=== PATIENT | female | born 1995 | race Caucasian/White ===

== ENCOUNTER 2022-07-05 15:29 | Emergency (ER) | payer MEDICAID, SELFPAY ==
[2022-07-05 15:30] VITALS: BP 100/59; PULSE 100; RESP 19; TEMP 36.1; O2SAT 100
[2022-07-05 15:44] VITALS: BMI 29.1
--- NOTE | 2022-07-05 15:53 | RAD_ITS ---
STUDY: X-RAY - RIGHT CLAVICLE REASON FOR EXAM: Female, 27 years old. Fell down 13 steps. Right clavicular pain. TECHNIQUE: 2 view(s) of the clavicle. COMPARISON: None. FINDINGS: Displaced comminuted fracture of the mid clavicle. Normal acromioclavicular articulation. Normal visualized sternoclavicular articulation. Normal visualized pulmonary apex. RAD/Clavicle IMPRESSION: Displaced comminuted fracture of the mid clavicle Electronically Signed: Ki Garcia DO at 17:14 EST ,
--- NOTE | 2022-07-05 16:04 | EDS_ITS ---
HPI History of Present Illness Chief Complaint: Fall Narrative Narrative: Patient is a 27-year-old female with no significant medical history presents to the emergency department after a mechanical fall down 13 steps, patient did have a positive LOC. Patient states that she did have loss of bowel and bladder. Patient states that she might have been out of her close to 5 minutes she is unsure. She did get herself up, call her friend and her friend brought her here. Patient is mostly complaining of her right collarbone, right shoulder. She also has pain to her neck and head. She is alert and orient x4. She denies any recent drug use. She alcohol use PFSH PFS Medical History no medical history Home Medications cyclobenzaprine 10 mg tablet 10 mg PO TID PRN Muscle Spasm #15 TABLETS 07/05/22 [Rx Last Taken Unknown] ibuprofen 800 mg tablet 800 mg PO Q8H #20 tabs 07/05/22 [Rx Last Taken Unknown] oxycodone-acetaminophen 5 mg-325 mg tablet (Percocet) 1 tab PO Q8H PRN pain 3 days #12 tabs 07/05/22 [Rx Last Taken Unknown] Allergy/AdvReac Type Severity Reaction Status Date / Time No Known Allergies Allergy Verified 06/28/13 12:27 Social History Smoking Status: Current every day smoker tobacco type: cigarettes ROS ROS ED ROS Narrative Constitutional: Negative for fever, chills, weight loss, weakness Eyes: Negative for vision loss, vision change, double vision ENT: Negative for any sore throat, ear pain, congestion Cardiovascular: Negative for any chest pain, tightness, palpitations Respiratory: Negative for any cough, sputum production, hemoptysis, dyspnea, dyspnea on exertion, orthopnea Gastrointestinal: Negative for any abdominal pain, nausea, vomiting, diarrhea, constipation, blood in stool, blood in vomit : Negative for any urinary frequency, dysuria, retention, blood in urine Muscle skeletal: Negative for any muscle joint pain, stiffness, myalgias, arthralgias,back pain. Positive for neck pain, right shoulder, right clavicle pain Neurological: Negative for any syncope, numbness or tingling, dizziness. Positive for headache Skin: Negative for any rashes, lumps, itching, abrasions, lacerations Psychiatric: Negative for any depression, anxiety, stress, suicidal ideation, homicidal ideation Hematologic: Negative for any easy bruising, excessive bruising, easy bleeding Allergies: Negative for any eczema, hives, rash EXAM Physical Exam Narrative Exam Narrative: Vital signs reviewed. Patient is alert and orient x4. She does appear to be in distress secondary to pain to her right collarbone, right shoulder. HEET: Head normocephalic atraumatic, TMs clear bilaterally. Posterior pharynx is clear, moist mucous membranes. Nares clear bilaterally. Pupils are equal round reactive to light. Negative for any hemotympanum, septal hematoma. Neck: Supple with no lymphadenopathy or tenderness. No signs of meningismus, negative jolt sign. Cardiac: Regular rate and rhythm no murmurs gallops or rubs, equal peripheral pulses bilaterally. Respiratory: Lungs clear to auscultation bilaterally. Patient did have some tenderness to the right ribs Abdomen: Soft, nontender, nondistended. No abdominal bruit or pulsatile masses. No hepatosplenomegaly Extremities: No peripheral edema, no signs of gross trauma or deformity. Active full range of motion of all extremities. Neuro: Cranial nerves II through XII intact, no focal neurological deficits. Skin: Clean dry and intact with no rash, purpura, petechiae, vesicles or pustules. Backs/flank: No CVA tenderness, no midline spinal tenderness, no deformity. No signs of ecchymosis. Psych: Normal mood and affect. No SI, HI or acute psychosis. Const Vital Signs: 07/05/22 15:30 07/05/22 15:45 Temperature 97 F L Temperature Source Temporal Pulse Rate 100 Respiratory Rate 19 H Respiratory Effort Normal Non-Labored Blood Pressure 100/59 L Blood Pressure Mean 72 Pulse Ox 100 Oxygen Delivery Method Room Air [facility] Lab Data Labs: Laboratory Results - last 24 hr 07/05/22 07/05/22 07/05/22 16:02 16:02 16:02 WBC 14.1 H RBC 4.69 Hgb 14.6 Hct 43.5 MCV 92.8 MCH 31.1 MCHC 33.6 RDW Std Deviation 39.9 RDW Coeff of Vik 11.8 Plt Count 319 MPV 8.7 Immature Gran % (Auto) 0.700 Neut % (Auto) 78.6 H Lymph % (Auto) 14.6 L [place] % (Auto) 5.4 Eos % (Auto) 0.3 Baso % (Auto) 0.4 Absolute Neuts (auto) 11.1 H Absolute Lymphs (auto) 2.06 Nucleated RBC % 0.1 Sodium 138 Potassium 4.1 Chloride 106 Carbon Dioxide 27.0 Anion Gap 5 BUN 13 Creatinine 0.96 Estim Creat Clear Calc 77.81 Est GFR (MDRD) Af Amer 88 Est GFR (MDRD) Non-Af 73 BUN/Creatinine Ratio 13.5 Glucose 99 Calcium 8.7 Serum , Qual NEGATIVE Radiography Diagnostic Testing: Clinical Impression(s) from Imaging Studies Clavicle X-Ray 07/05/22 15:53 IMPRESSION: Displaced comminuted fracture of the mid clavicle Electronically Signed: Ki Garcia DO at 17:14 EST Reading Location ID and State: [facility] [place] [facility] [employer] Tel [phone], Service support , Brain CT 07/05/22 16:42 IMPRESSION: Normal unenhanced CT scan of the brain. [employer] was utilized to assist in identifying pertinent positive findings in this case. Electronically Signed: Ki Garcia DO at 17:00 EST Reading Location ID and State: [place] Tel [phone], Service support , Cervical Spine CT 07/05/22 16:42 IMPRESSION: No acute fracture or subluxation. Note: MRI is more sensitive than CT in detecting cord injury, ligamentous injury and epidural hematoma. If there is continued clinical concern for any of these entities, MRI should be considered. [employer] was utilized to assist in identifying pertinent positive findings in this case. Electronically Signed: Ki Garcia DO at 17:13 EST Reading Location ID and State: [facility] [place] / [employer] Tel [phone], Service support , Chest CT 07/05/22 16:42 IMPRESSION: 1. Right clavicular fracture. 2. Otherwise normal CT of the chest. Electronically Signed: Ki Garcia DO at 17:16 EST Reading Location ID and State: [place] Tel [phone], Service support , Shoulder X-Ray 07/05/22 16:57 IMPRESSION: Mid clavicular fracture. Electronically Signed: Ki Garcia DO at 17:14 EST Reading Location ID and State: [address] [place] [address] Tel [phone], Service support , EKG Sinus tachycardia: Attestation: I personally reviewed and interpreted this EKG as follows: Comments: EKG inter by ER physician sinus tachycardia, rate 102 bpm, MS 126 ms, QRS duration 70 more milliseconds no acute ST elevation, no acute infarct noted. Treatment and Re-Evaluation :: All radiologic examinations were read, reviewed by the emergency department attending. From these reads, a plan of care will be put in place. Patient appears well, patient appears nontoxic, vital signs are stable. Patient arrives in moderate discomfort secondary to right shoulder pain. Patient presents the emergency department after mechanical fall down 13 steps, positive LOC. Patient received EKG which was unremarkable. There is no evidence suspect any syncope then fall. Patient's laboratory values showed a CBC with a leukocytosis with a white blood count of 14.1, this is likely reactive. [facility], patient does not Agnant. Patient did receive a CT scan of the brain a CT scan cervical spine, this was grossly unremarkable. Patient received a CT scan of chest, looking for any rib fractures, thoracic spinal fractures, this was negative. Patient did receive a shoulder and clavicular x-rays, this did show a displaced comminuted fracture of the mid clavicular. Patient will be placed in a sling. The patient did receive IV morphine, IV Zofran, IV fluids. Patient on reevaluation received a second dose of IV morphine. Patient will be able to be discharged. Patient will be given Percocet, Flexeril, ibuprofen for home. She is instructed to follow-up with orthopedics for concern of surgery of the right clavicle. I was able speak with the patient's mother who verbally understands the importance of follow-up and will stay with the patient tonight. Patient is happy with the plan of care and is stable for discharge. Discharge Plan Triage Chief Complaint: Fall ED Midlevel Provider: Jesu Blank ED Provider: Jesu Arreaga Dx/Rx/DC Orders Clinical Impression: Fall, Head injury due to trauma, Clavicle fracture, Contusion of rib, Cervical muscle strain Instructions: After a Concussion, ED Fracture, Clavicle, ED Bruise, Rib Prescriptions: New oxycodone-acetaminophen [Percocet] 5-325 mg tablet 1 tab PO Q8H PRN (Reason: pain) 3 Days Qty: 12 0RF ibuprofen 800 mg tablet 800 mg PO Q8H Qty: 20 0RF cyclobenzaprine 10 mg tablet 10 mg PO TID PRN (Reason: Muscle Spasm) Qty: 15 0RF Stand Alone Forms: ED Work / School Excuse Primary Care Provider: Care Physician,No Primary Referrals: Care Physician,No Primary [Primary Care Provider] - Girish Lazo DO [Med Staff - Active Staff] - Activity Restrictions/Additional Instructions: You must wear the sling at all times. Ice, use the pain medicine, anti- inflammatories, muscle relaxers as needed. You need to follow-up with orthopedics secondary to needing possible surgery
[2022-07-05] MEDS: 0.9% Normal Saline 1,000 ML 1000 ML IV (16:09)
[2022-07-05] MEDS: Ondansetron 4 MG/2 ML Vial IV (16:10)
[2022-07-05] MEDS: Morphine 4 MG/ML Syringe IV ×2 (16:10→17:47)
[2022-07-05 16:14] LABS: Absolute Lymphocyte Count 2.06 X10^3/uL (0.83-4.51); Absolute Neutrophil Count 11.1 X10^3/uL (2.0-7.7); Basophil# 0.05 X10^3/uL; Basophil% 0.4 % (0-1); Eosinophil# 0.04 X10^3/uL; Eosinophils% 0.3 % (0-5); Hematocrit 43.5 % (37-47); Hemoglobin 14.6 g/dL (12.0-15.0); Lymphocyte # 2.06 X10^3/ul (0.83-4.51); Lymphocyte % 14.6 % (19-41); Mean Corp Hgb Conc 33.6 g/dL (32-36); Mean Corpuscular Hgb 31.1 pg (27.0-32.0); Mean Corpuscular Volume 92.8 fL (81-99); Mean Platelet Vol. 8.7 fl (6.2-12.0); Monocyte# 0.76 X10^3/uL; Monocyte% 5.4 % (0-10); NRBC Flagged by Analyzer 0.1 % (0-5); Neutrophil # 11.06 X10^3/uL (2.7-7.7); Neutrophil % 78.6 % (47-70); Platelet Count 319 K/mm3 (150-450); RBC Distribution Width CV 11.8 % (11.6-14.6); RBC Distribution Width SD 39.9 fl (35.1-43.9); Red Blood Count 4.69 M/mm3 (4.2-5.4); White Blood Count 14.1 K/mm3 (4.4-11.0)
[2022-07-05 16:20] LABS: Glucose 99 mg/dL (74-106)
[2022-07-05 16:21] LABS: Anion Gap 5 (5-15); BUN 13 mg/dL (7-18); BUN/Creat Ratio 13.5 RATIO (10-20); Calcium,Total 8.7 mg/dL (8.5-10.1); Chloride 106 mmol/L (98-107); Creatinine, Serum 0.96 mg/dL (0.55-1.02); EST Glomerular Filtration Rate 73 mL/min (>60); Est Glom Filt Rate - Afr Amer 88 mL/min (>60); Estimated Creatinine Clearance 77.81 ml/min; Potassium 4.1 mmol/L (3.5-5.1); Sodium Level 138 mmol/L (136-145)
[2022-07-05 16:39] LABS: Internal QC Validated? YES +Cl - CLEAR BKGD; Pregnancy, Serum, hCG Quali. NEGATIVE Negative
--- NOTE | 2022-07-05 16:42 | CT_ITS ---
STUDY: CT BRAIN WITHOUT CONTRAST REASON FOR EXAM: Female, 27 years old. Fall down 13 steps. Loss of consciousness. RADIATION DOSAGE (If Supplied By Facility): CTDIvol = ( 44.99 ) mGy, DLP = ( 812.98 ) mGycm TECHNIQUE: Transaxial CT imaging of the brain was performed without administration of intravenous contrast material. Individualized dose optimization techniques were used for this CT. COMPARISON: No relevant priors. FINDINGS: Normal soft tissue structures. Normal calvarium. Normal size ventricles and extra-axial spaces for the patient''s age. Normal white matter tracts of the cerebral hemispheres. Normal basal ganglia and thalami. Normal brainstem. Normal cerebellum. There is no intracranial hemorrhage. There are no findings of an acute ischemic infarction. Normal visualized paranasal sinuses. CT/Brain/Head without Contrast IMPRESSION: Normal unenhanced CT scan of the brain. [employer] was utilized to assist in identifying pertinent positive findings in this case. Electronically Signed: Ki Garcia DO at 17:00 EST ,
--- NOTE | 2022-07-05 16:42 | CT_ITS ---
STUDY: CT CERVICAL SPINE WITHOUT CONTRAST REASON FOR EXAM: Female, 27 years old. Fell down 13 steps with loss of consciousness. RADIATION DOSAGE (If Supplied By Facility): CTDIvol = ( 24.01 ) mGy, DLP = ( 496.21 ) mGycm TECHNIQUE: High resolution transaxial imaging was performed without contrast material. Sagittal and coronal images were reconstructed. Individualized dose optimization techniques were used for this CT. COMPARISON: None FINDINGS: Normal craniovertebral junction. Normal anterior atlantoaxial articulation. Normal odontoid process. There is straightening of the normal cervical lordosis. Normal vertebral bodies and posterior osseous elements. C2-3: Normal endplates. Normal disc height and morphology. Normal central canal and intervertebral neuroforamina. C3-4: Normal endplates. Normal disc height and morphology. Normal central canal and intervertebral neuroforamina. C4-5: Normal endplates. Normal disc height and morphology. Normal central canal and intervertebral neuroforamina. C5-6: Normal endplates. Normal disc height and morphology. Normal central canal and intervertebral neuroforamina. C6-7: Normal endplates. Normal disc height and morphology. Normal central canal and intervertebral neuroforamina. C7-T1: Normal endplates. Normal disc height and morphology. Normal central canal and intervertebral neuroforamina. Normal visualized soft tissue structures. CT/Spine Cervical without Contras IMPRESSION: No acute fracture or subluxation. Note: MRI is more sensitive than CT in detecting cord injury, ligamentous injury and epidural hematoma. If there is continued clinical concern for any of these entities, MRI should be considered. [employer] was utilized to assist in identifying pertinent positive findings in this case. Electronically Signed: Ki Garcia DO at 17:13 EST ,
--- NOTE | 2022-07-05 16:42 | CT_ITS ---
INDICATION: Trauma. Fell down 13 steps. EXAMINATION: CT CHEST WITHOUT CONTRAST - CT Chest W/O Contrast Injection TECHNIQUE: Helically acquired images were obtained of the chest. A radiation dose optimization technique was used for this scan. IV Contrast dosage and agent: None. COMPARISON: None. FINDINGS: LUNGS, PLEURA AND LARGE AIRWAYS: No masses, consolidation, or edema. No pleural effusion or thickening. No pneumothorax. THYROID: No thyroid lesions. HEART AND PERICARDIUM: Heart size is normal. No pericardial effusion. CORONARY ARTERIES: Coronary artery calcification VESSELS: Thoracic aorta is not dilated. MEDIASTINUM AND STEFANI: Soft tissue in the anterior mediastinum. Question residual thymic tissue. Mediastinum is otherwise unremarkable. Esophagus is unremarkable. No hiatal hernia. UPPER ABDOMEN: No acute pathology. BONES: There is a comminuted displaced fracture of the mid right clavicle. Shoulder girdle is otherwise intact. No rib fracture. Normal thoracic spine. CT/Chest without Contrast IMPRESSION: 1. Right clavicular fracture. 2. Otherwise normal CT of the chest. Electronically Signed: Ki Garcia DO at 17:16 EST ,
--- NOTE | 2022-07-05 16:57 | RAD_ITS ---
STUDY: X-RAY - RIGHT SHOULDER REASON FOR EXAM: Female, 27 years old. Fell down 13 steps. TECHNIQUE: 2 view(s) of the shoulder. COMPARISON: Right clavicle, July 05, 2022. FINDINGS: Normal glenohumeral articulation. Normal acromioclavicular joint. Normal acromion. There is a displaced comminuted fracture of the mid clavicle. Normal humeral head and visualized proximal humerus. The soft tissue structures are unremarkable. Normal visualized pulmonary apex. RAD/Shoulder min 2 Views IMPRESSION: Mid clavicular fracture. Electronically Signed: Ki Garcia DO at 17:14 EST ,
--- NOTE | 2022-07-05 17:14 | CM.ED ---
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 Patient was sitting up in bed and agreeable to speak to family welfare social work professor. SW inquired about patient's current PCP as well as insurance. Patient verified her insurance and reports not currently having a PCP. SW provided patient with a list of in network PCPs accepting new patients within 15 miles of her home address. Patient was receptive towards list and reports no other needs. SW remains available if needs arise. Dorothy Elliott MSW, [place]
== END 2022-07-05 18:08 | disposition home or self-care (01) ==
PROVIDERS: Nurse Practitioner; Emergency Provider Emergency Medicine; Visit Provider Emergency Medicine
DX: S42.021A Displaced fracture of shaft of right clavicle, initial encounter for closed fracture (principal); S06.899A Other specified intracranial injury with loss of consciousness of unspecified duration, initial encounter; S20.219A Contusion of unspecified front wall of thorax, initial encounter; S16.1XXA Strain of muscle, fascia and tendon at neck level, initial encounter; F10.90 Alcohol use, unspecified, uncomplicated; F17.210 Nicotine dependence, cigarettes, uncomplicated; W10.9XXA Fall (on) (from) unspecified stairs and steps, initial encounter
CPT/HCPCS: 70450; 71250; 72125; 73000; 73030; 80048; 84703; 85025; 93005; 96361; 96374; 96375; 96376; 99282; J7030; A4216; J2405

== ENCOUNTER 2022-07-18 09:54 | Day surgery (SDC) | payer MEDICAID, SELFPAY ==
[2022-07-18 10:21] LABS: Internal QC Validated? YES +Cl - CLEAR BKGD; Pregnancy, Urine Negative Negative
[2022-07-18] MEDS: Lactated Ringers 1,000 ML 15 ML IV ×2 (10:25→14:31)
--- NOTE | 2022-07-18 10:25 | RAD_ITS ---
STUDY: X-RAY - RIGHT CLAVICLE REASON FOR EXAM: Female, 27 years old. FX TECHNIQUE: 3 view(s) of the clavicle. COMPARISON: Comparison is made with prior study of July 05, 2022. FINDINGS: Intraoperative imaging for ORIF of the right clavicular fracture. There is good alignment. RAD/Clavicle IMPRESSION: Status post ORIF of a right midclavicular fracture. There is good alignment. Electronically Signed: Cody Cevallos MD at 15:44 EDT ,
[2022-07-18 10:27] VITALS: BP 132/85; PULSE 100; RESP 18; TEMP 36.7; O2SAT 100; BMI 29.9
--- NOTE | 2022-07-18 11:16 | SUR.PREOP ---
pt had coffee with cream- anesthesia aware and surgery delayed until 1330- pt aware
--- NOTE | 2022-07-18 11:36 | PCM.HP.STD ---
HPI - General HPI Narrative LOBO DONNELLY, is a 27 F who presents for ORIF right clavicle fracture. No changes to h and p. OK to proceed. Right clavicle marked. Aftercare and narcotic counselling done. Drank coffee with cream so case delayed until 130pm. MR#: [id number] Acct: [id number] Name:LOBO MCCOY Rep #: [id number] : 1995 ? ? Provider: Dr. Savage Carrasquillo MD Age/Sex:? 27/F ? ? [place] [facility] [place] Status: Signed Intake Intake Visit Reasons:?RIGHT SHOULDER Is patient in pain?: Yes Pain scale (1-10): 10 Allergies No Known Allergies Allergy (Verified 07/10/22 15:07) Medications cyclobenzaprine 10 mg tablet 10 mg PO TID PRN Muscle Spasm #15 TABLETS 07/05/22 [Rx Confirmed 07/10/22] ibuprofen 800 mg tablet 800 mg PO Q8H #20 tabs 07/05/22 [Rx Confirmed 07/10/22] PFSH Medical History?(Updated 07/10/22 @ 15:24 by Savage Carrasquillo MD) Right clavicle fracture Social History? Smoking Status:? Current every day smoker tobacco type: cigarettes HPI RIGHT SHOULDER Details: Parts of this documentation were recorded by a scribe, this documentation accurately reflects the service provided and the decisions made by me, Dr. Savage Carrasquillo MD 07/10/22 [id number]. LOBO DONNELLY is a 27 year old F here today for? right clavicle fracture, fell down [address] 6 days ago, RHD. Right clavicle hurts, the shoulder, hurts to cough. No problems breathing. NO prior injuries. 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 1/2 ppd smoker. Ortho Exam General General: Yes no acute distress Neurologic: Yes alert and Yes oriented x3 Psychologic: Yes reasonable and appropriate Right Wrist/Hand Motor: EPL: 5, FDP-2: 5, 1st Dorsal Interosseous: 5 and APB: 5 Sensation: Radial: I, Ulnar: I and Median: I WRIST: no pain at proximal humerus, pain at mid shaft clavicle. normal breathing effort. strong rad pulse. Right Shoulder Skin/Wound: Yes CDI, Yes ecchymosis, No erythema and Yes swelling (bump at fracture, skin not threatened) Supplemental Info [facility] [place] [address] Clavicle MR#:? [id number] Acct: [id number] Name:? LOBO DONNELLY Rep #: [id number] :?? 1995 F 27 ? From:? ? Ki Garcia DO PCP: Care Physician,No Primary ? Status: REG ER Study: Clavicle ? Date of Exam: 07/05/22 Exam# [id number] ? Ordering Dr:? Jesu Blank NP-Joy STUDY: ? X-RAY - RIGHT CLAVICLE REASON FOR EXAM: ? Female, 27 years old.? Fell down 13 steps. Right clavicular pain. TECHNIQUE:? 2 ? view(s) of the clavicle. COMPARISON: ? None. FINDINGS: Displaced comminuted fracture of the mid clavicle.? Normal acromioclavicular articulation.? Normal visualized sternoclavicular articulation. Normal visualized pulmonary apex. RAD/Clavicle IMPRESSION: Displaced comminuted fracture of the mid clavicle ? Electronically Signed: Ki Garcia DO at 17:14 EST Reading Location ID and State: [address] [place] [address] Tel [phone], Service support? , Coding Level of Care Code Off vis,new,level 4 Diagnoses Right clavicle fracture? S42.001A Assessment and Plan Assessment and Plan (1) Right clavicle fracture: ?Status:?Acute ?Plan: 27-year-old female with right midshaft clavicle fracture.? This appears a displaced 100% mild comminution with shortening of about 2 cm.? These are all known risk factors for nonunion in the literature as well as the smoking.? We discussed the pros and cons risks and benefits of nonoperative treatment - likely nonanatomic alignment shortening of the upper extremity easy fatigability in forward elevation beyond shoulder height as well as potential droopy shoulder.? Risk of surgery also discussed lung injury, plate prominence, numbness at incision site, infection, NV injury, and non union - typically less with surgery.? Typically surgery is indicated for these radiographic parameters to decrease the risk of nonunion and she would like to go ahead with right clavicle open reduction internal fixation.? I did also warn about the increased risks of infection and other complications related to the smoking so asked the patient to quit or cut back.? I will try to put this on the surgical slate for the next 7 to 10 days. Pros and cons risks and benefits were discussed with the patient including but not limited to infection, pain, stiffness, bleeding, damage to surrounding structures, neurovascular injury, recurrence or retear, failure or wear of hardware or fixation, instability, fracture, deep vein thrombosis and pulmonary embolism, anesthetic risks, , patient dissatisfaction, need for further surgery and other risks.? Patient understood and wished to proceed with surgery, and signed the informed consent documentation. PFSH Medical History Leg cramps Restless legs Right clavicle fracture Shortness of breath on exertion Smoker Home Medications cyclobenzaprine 10 mg tablet 10 mg PO TID PRN Muscle Spasm #15 TABLETS 07/05/22 [Rx Last Taken Unknown] ibuprofen 800 mg tablet 800 mg PO Q8H #20 tabs 07/05/22 [Rx Last Taken Unknown] oxycodone-acetaminophen 5 mg-325 mg tablet 1 tab PO Q4H PRN PRN Pain 07/13/22 [History Last Taken Unknown] Allergy/AdvReac Type Severity Reaction Status Date / Time No Known Allergies Allergy Verified 07/18/22 10:25 Surgical History (Updated 07/13/22 @ 14:53 by Christin Matthews) History of nasal surgery Social History Smoking Status: Current every day smoker tobacco type: cigarettes Vital Signs Vital Signs Vital Signs: 07/18/22 10:27 07/18/22 10:27 Temperature 98.1 F Temperature Source Temporal Pulse Rate 100 Respiratory Rate 18 Respiratory Pattern Normal Blood Pressure 132/85 H Blood Pressure Mean 100 Blood Pressure Source Monitor Blood Pressure Position Semi-Fowlers Blood Pressure Location Left Arm Pulse Ox 100 Oxygen Delivery Method Room Air Weight Weight: 180 lb Body Mass Index (BMI) 29.9 Results Lab / Micro Data Labs: Laboratory Results - last 24 hr 07/18/22 10:05: Urine Test Negative
[2022-07-18] MEDS: Cefazolin 2 GM in 0.9% Normal Saline 100 ML IV (13:32)
--- NOTE | 2022-07-18 15:03 | PCM.OPRPT ---
Problems Associated Problem List Diagnoses (1) Right clavicle fracture: Report of Operation Date of Procedure: 07/18/22 Pre-Operative Diagnosis: Right clavicle fracture Post-Operative Diagnosis: Same Surgery/Procedure Performed:: Right clavicle open reduction internal fixation Surgeon: Savage Carrasquillo Type of Anesthesia: Block,Regional and General Anesthesiologist: Donte Barros Estimated Blood Loss (mL): 50 Description of Procedure: Patient brought to operating room theater. Placed supine on the operating room table beachchair positioner. Trimano arm hudson to the right side. 2 g IV Ancef administered prior to the start of the procedure. General anesthesia induced all bony prominences padded. SCDs on the legs. Patient sat up at a 45 degree angle using the training and development head turned slightly to the left. Upper extremity prepped and draped in the usual sterile fashion with chlorhexidine-based prep solution allowing over 3 minutes drying time prior to draping. Preoperative timeout performed to confirm the site patient and the surgery. Began by marking out the fracture site as well as the superior border of the clavicle. Made a longitudinal incision over this carried dissection down through skin and subcutaneous tissue achieved meticulous hemostasis through the platysma directly onto the superior aspect of the clavicle. Used periosteal elevator to identify the superior surface. Identified the fracture site. Had to debride and use irrigation to remove and mobilize moderate amount of callus. I did mobilize the fragments at the fracture site release a small amount of soft tissue. Achieved a preliminary reduction with lobster-claw forceps. Passed a 1.6 mm K wire obliquely across the fracture site. There is 1 small piece of comminution that I used to delivery driver the length I keyed this in anteriorly and made sure to keep all soft tissue attachments. Reduction was anatomic and out to length. I selected a Synthes precontoured 2.7 mm locking plate for the right side place on the superior surface of the bone and clamped it in place on both sides of fracture site. I placed 4 fully threaded cortical screws on both sides of the fracture secured this quite solidly. Final radiographs were taken and saved onto the system all screw lengths were appropriate. Wound thoroughly irrigated with copious amounts of saline. Small amount of comminution attached anteriorly with a 2-0 Vicryl suture. Fascial layer closed with a running #1 Vicryl suture subcutaneous tissue with 2-0 Vicryl suture skin with 3-0 Monocryl and cleaned with wet and dry dressing followed by application of Dermabond and then Mepilex Ag dressing once the Dermabond dried. Sling for the upper extremity drapes removed patient woken up taken off the operating room table and taken to postanesthetic care unit in stable condition. All sponge needle instrument counts were correct no complications plan for the patient discharged home according to day surgery criteria follow-up in the office 2 days time. Complications none Admit VTE Documentation VTE Present on Admission: No VTE Mechan Device Prophylaxis: SCD's Reason prophylaxis not ordered:: Treatment Not Indicated Procedures Musculoskeletal [id number]: Other Procedure See Report
[2022-07-18 15:05] VITALS: BP 125/87; BP 132/85; PULSE 100; RESP 16; TEMP 36.5; O2SAT 99
--- NOTE | 2022-07-18 15:11 | DCINST_ITS ---
Discharge Instructions Diet Discharge Diet: No restrictions Activity Ice area for (Minutes): 10 Lifting Restrictions: pendulums only, hand wrist elbow ROM ok Dressing / Incision Call your doctor if your incision/area has: Continuous Slow Oozing, Sudden Increased Bleeding, Increased Pain/ Swelling, Increased Redness, Foul Smelling Discharge and Swelling at the incision site Remove Dressing in: leave in place till F/U Cleanse incision/area with: Keep Dressing Clean & Dry Follow Up Care Please Follow Up With: Savage Carrasquillo MD When: 2 days Test Results: Test results from this visit will be discussed in further detail at your follow- up appointment, if applicable. Discharge Plan Admission Attending Provider: Savage Carrasquillo Primary Care Provider: Care Physician,No Primary Instructions Patient Instructions: Clavicle ORIF Discharge Orders/Prescriptions Prescriptions: New oxycodone-acetaminophen [Percocet] 5-325 mg tablet 1 tab PO Q6H MDD 6 PRN (Reason: pain) 5 Days Qty: 20 0RF No Action ibuprofen 800 mg tablet 800 mg PO Q8H Qty: 20 0RF cyclobenzaprine 10 mg tablet 10 mg PO TID PRN (Reason: Muscle Spasm) Qty: 15 0RF oxycodone-acetaminophen 5-325 mg tablet 1 tab PO Q4H PRN PRN (Reason: Pain) Label Comments: 1 TAB ORALLY EVERY 8 HOURS NEEDED FOR PAIN FOR 3 DAYS Referrals / Follow Up: Savage Carrasquillo MD [Med Staff - Active Staff] - Care Physician,No Primary [Primary Care Provider] - Disposition Disposition (needs filled in before D/C Order can be placed): Home, Self Care
[2022-07-18 15:15] VITALS: BP 118/77; BP 132/85; PULSE 81; RESP 16; O2SAT 100
[2022-07-18 15:30] VITALS: BP 119/78; BP 132/85; PULSE 84; RESP 16; O2SAT 100
[2022-07-18 15:45] VITALS: BP 113/71; BP 132/85; PULSE 96; RESP 16; TEMP 36.2; O2SAT 100
[2022-07-18] MEDS: Ondansetron 4 MG/2 ML Vial IV (15:59)
[2022-07-18] MEDS: Acetaminophen 325 MG Tablet 650 MG PO (16:18)
[2022-07-18 16:40] VITALS: BP 122/75; BP 132/85; PULSE 75; RESP 16; O2SAT 98
== END 2022-07-18 17:00 | disposition home or self-care (01) ==
LOC: SDC 09:57 → AC 09:58
PROVIDERS: Anesthesiology; Referring Provider Orthopaedic Surgery Sports Medicine; Visit Provider Orthopaedic Surgery Sports Medicine
PROC: (CPT 23515; principal; 2022-07-18 11:05)
DX: S42.001A Fracture of unspecified part of right clavicle, initial encounter for closed fracture (principal); F17.210 Nicotine dependence, cigarettes, uncomplicated
CPT/HCPCS: 23515; 00450; 64450; 73000; 76000; 81025; C1776; J7120; J2405

== ENCOUNTER 2022-07-27 13:01 | Outpatient (RCR) | payer MEDICAID, SELFPAY | END 2022-07-27 19:00 | disposition home or self-care (01) | LOC: PT 13:01 | PROVIDERS: Referring Provider Orthopaedic Surgery Sports Medicine; Visit Provider Orthopaedic Surgery Sports Medicine | DX: S42.001D Fracture of unspecified part of right clavicle, subsequent encounter for fracture with routine healing (principal) ==